=== PATIENT | female | born 1945 | race Caucasian/White ===

== ENCOUNTER → 2020-12-08 | Outpatient (CLI) | payer MEDICARE, OTHER ==
[~2020-12-08] MED LIST: BUSPIRONE HCL15 MG PO; CILOSTAZOL100 MG PO; CRESTOR20 MG OP; CYMBALTA60 MG PO; ECOTRIN81 MG PO; HYDROCODONE-AC1 EAC1 PO; LISINOPRIL-HCT1 EAC1 PO; NEURONTIN100 MG PO; NIFEDIPINE ER60 M1 PO; NOVOLOG MI100 UNITS/ SQ; OMEPRAZOLE40 MG PO; RELAFEN500 MG PO; ROPINIROLE HC0.25 MG PO; TENORMIN50 MG PO
== END ==
LOC: KOH-I 14:46
DX: M25.571 Pain in right ankle and joints of right foot (principal)
CPT/HCPCS: 73610

== ENCOUNTER → 2020-12-16 | Outpatient (CLI) | payer MEDICARE, OTHER | LOC: EXRD 10:45 → MRI 13:00 | DX: Z01.818 Encounter for other preprocedural examination (principal); M25.571 Pain in right ankle and joints of right foot; G89.29 Other chronic pain; M67.871 Other specified disorders of synovium, right ankle and foot; I73.9 Peripheral vascular disease, unspecified | CPT/HCPCS: 73721; 93926 ==

== ENCOUNTER → 2021-02-22 | Outpatient (CLI) | payer MEDICARE ==
[2021-02-22 11:09] LABS: HEMOGLOBIN 13.3 gm/dl (12.3-15.3); RED BLOOD COUNT 4.49 M/UL (4.00-5.10); WHITE BLOOD COUNT 11.1 K/UL (4.5-11.0)
== END ==
LOC: OPSV2 10:30
PROVIDERS: Podiatrist Foot & Ankle Surgery
DX: Z01.818 Encounter for other preprocedural examination (principal); M25.571 Pain in right ankle and joints of right foot; M25.371 Other instability, right ankle; Z20.822 Contact with and (suspected) exposure to COVID-19
CPT/HCPCS: 36415; 80048; 83036; 85027; 93005; U0003

== ENCOUNTER → 2021-02-26 | Day surgery (SDC) | payer MEDICARE, OTHER ==
[~2021-02-26] VITALS: Ht 152.4 cm; Wt 73.0 kg
== END | disposition home or self-care (01) ==
LOC: OR 06:15
DX: M25.571 Pain in right ankle and joints of right foot (principal); M25.471 Effusion, right ankle; M25.474 Effusion, right foot; G89.29 Other chronic pain; I10 Essential (primary) hypertension; E11.9 Type 2 diabetes mellitus without complications; J44.9 Chronic obstructive pulmonary disease, unspecified; I25.10 Atherosclerotic heart disease of native coronary artery without angina pectoris; E78.5 Hyperlipidemia, unspecified; M19.90 Unspecified osteoarthritis, unspecified site; M10.9 Gout, unspecified; K21.9 Gastro-esophageal reflux disease without esophagitis; F41.9 Anxiety disorder, unspecified; Z95.5 Presence of coronary angioplasty implant and graft; Z91.040 Latex allergy status; Z79.82 Long term (current) use of aspirin; Z79.4 Long term (current) use of insulin; Z79.899 Other long term (current) drug therapy
CPT/HCPCS: 82962; C1713; J0171; J0690; J1100; J2001; J2405; J2704; J3010; J7030; J7120; Q4133

== ENCOUNTER → 2022-05-02 | Outpatient (CLI) | payer MEDICARE | LOC: HEART CORB 10:20 | DX: E11.51 Type 2 diabetes mellitus with diabetic peripheral angiopathy without gangrene (principal); R06.02 Shortness of breath; I10 Essential (primary) hypertension; E78.5 Hyperlipidemia, unspecified; M79.602 Pain in left arm; E11.42 Type 2 diabetes mellitus with diabetic polyneuropathy; G25.81 Restless legs syndrome; I25.10 Atherosclerotic heart disease of native coronary artery without angina pectoris; R94.31 Abnormal electrocardiogram [ECG] [EKG]; R41.3 Other amnesia; Z95.5 Presence of coronary angioplasty implant and graft; Z87.891 Personal history of nicotine dependence | CPT/HCPCS: 78452; A9502; J2785 ==

== ENCOUNTER → 2022-05-17 | Outpatient (CLI) | payer MEDICARE | LOC: KOH-I 14:53 | DX: M25.572 Pain in left ankle and joints of left foot (principal); M25.571 Pain in right ankle and joints of right foot; M19.072 Primary osteoarthritis, left ankle and foot; M19.071 Primary osteoarthritis, right ankle and foot | CPT/HCPCS: 73610; 73630 ==